=== PATIENT | female | born 1940 | race Caucasian/White ===

== ENCOUNTER 2017-08-20 07:52 | Outpatient (CLI) | payer OTHER ==
[~2017-08-20 07:52] MED LIST: MACROBID 100 M100 MG PO; ULTRACET PO
== END 2017-08-20 08:00 | disposition home or self-care (01) ==
LOC: LAB 07:52
DX: D51.0 Vitamin B12 deficiency anemia due to intrinsic factor deficiency (principal); D51.1 Vitamin B12 deficiency anemia due to selective vitamin B12 malabsorption with proteinuria; D53.0 Protein deficiency anemia; I10 Essential (primary) hypertension; E08.65 Diabetes mellitus due to underlying condition with hyperglycemia; E03.8 Other specified hypothyroidism; E04.2 Nontoxic multinodular goiter; D50.8 Other iron deficiency anemias; D51.8 Other vitamin B12 deficiency anemias; E55.9 Vitamin D deficiency, unspecified; K90.89 Other intestinal malabsorption; D68.8 Other specified coagulation defects

== ENCOUNTER 2018-02-19 08:44 | Outpatient (CLI) | payer OTHER | END 2018-02-19 08:49 | disposition home or self-care (01) | LOC: LAB 08:44 | DX: D51.0 Vitamin B12 deficiency anemia due to intrinsic factor deficiency (principal); D51.1 Vitamin B12 deficiency anemia due to selective vitamin B12 malabsorption with proteinuria; D53.0 Protein deficiency anemia; D68.8 Other specified coagulation defects; I10 Essential (primary) hypertension; E08.65 Diabetes mellitus due to underlying condition with hyperglycemia; E03.8 Other specified hypothyroidism; E04.2 Nontoxic multinodular goiter; D50.8 Other iron deficiency anemias; E55.9 Vitamin D deficiency, unspecified; K90.89 Other intestinal malabsorption; R97.0 Elevated carcinoembryonic antigen [CEA]; R97.8 Other abnormal tumor markers ==

== ENCOUNTER 2018-08-27 08:09 | Outpatient (CLI) | payer OTHER | END 2018-08-27 08:18 | disposition home or self-care (01) | LOC: LAB 08:09 | DX: D51.0 Vitamin B12 deficiency anemia due to intrinsic factor deficiency (principal); D51.1 Vitamin B12 deficiency anemia due to selective vitamin B12 malabsorption with proteinuria; D53.0 Protein deficiency anemia; D68.8 Other specified coagulation defects; I10 Essential (primary) hypertension; E08.65 Diabetes mellitus due to underlying condition with hyperglycemia; E03.8 Other specified hypothyroidism; E04.2 Nontoxic multinodular goiter; D50.8 Other iron deficiency anemias; D51.8 Other vitamin B12 deficiency anemias; E55.9 Vitamin D deficiency, unspecified; K90.89 Other intestinal malabsorption ==

== ENCOUNTER 2019-03-01 07:28 | Outpatient (CLI) | payer OTHER | END 2019-03-01 07:37 | disposition home or self-care (01) | LOC: LAB 07:28 | DX: D51.0 Vitamin B12 deficiency anemia due to intrinsic factor deficiency (principal); D51.1 Vitamin B12 deficiency anemia due to selective vitamin B12 malabsorption with proteinuria; D53.0 Protein deficiency anemia; D68.8 Other specified coagulation defects; I10 Essential (primary) hypertension; E08.65 Diabetes mellitus due to underlying condition with hyperglycemia; E03.8 Other specified hypothyroidism; D50.8 Other iron deficiency anemias; E04.2 Nontoxic multinodular goiter; D51.8 Other vitamin B12 deficiency anemias; R97.0 Elevated carcinoembryonic antigen [CEA]; K90.89 Other intestinal malabsorption ==

== ENCOUNTER 2019-11-05 07:08 | Outpatient (CLI) | payer OTHER | END 2019-11-05 07:15 | disposition home or self-care (01) | LOC: LAB 07:08 | PROVIDERS: ATTEND Internal Medicine Hematology & Oncology | DX: D50.8 Other iron deficiency anemias (principal); I10 Essential (primary) hypertension; D51.0 Vitamin B12 deficiency anemia due to intrinsic factor deficiency; D51.1 Vitamin B12 deficiency anemia due to selective vitamin B12 malabsorption with proteinuria; D53.0 Protein deficiency anemia; D68.8 Other specified coagulation defects; E08.65 Diabetes mellitus due to underlying condition with hyperglycemia; E03.8 Other specified hypothyroidism; E04.2 Nontoxic multinodular goiter; D51.8 Other vitamin B12 deficiency anemias; E55.9 Vitamin D deficiency, unspecified; R97.0 Elevated carcinoembryonic antigen [CEA] ==

== ENCOUNTER 2020-01-05 07:02 | Outpatient (CLI) | payer OTHER | END 2020-01-05 07:09 | disposition home or self-care (01) | LOC: LAB 07:02 | PROVIDERS: ATTEND Internal Medicine Hematology & Oncology | DX: D50.8 Other iron deficiency anemias (principal); I10 Essential (primary) hypertension; R97.0 Elevated carcinoembryonic antigen [CEA]; R97.8 Other abnormal tumor markers; D51.0 Vitamin B12 deficiency anemia due to intrinsic factor deficiency; D51.1 Vitamin B12 deficiency anemia due to selective vitamin B12 malabsorption with proteinuria; D53.0 Protein deficiency anemia; D68.8 Other specified coagulation defects; E08.65 Diabetes mellitus due to underlying condition with hyperglycemia; E03.8 Other specified hypothyroidism; E04.2 Nontoxic multinodular goiter; R94.5 Abnormal results of liver function studies ==

== ENCOUNTER 2020-05-16 07:24 | Outpatient (CLI) | payer OTHER | END 2020-05-16 18:00 | disposition home or self-care (01) | LOC: LAB 07:24 | PROVIDERS: ATTEND Internal Medicine Hematology & Oncology | DX: D50.8 Other iron deficiency anemias (principal); I10 Essential (primary) hypertension; R79.89 Other specified abnormal findings of blood chemistry; R74.02 Elevation of levels of lactic acid dehydrogenase [LDH]; K76.89 Other specified diseases of liver; R97.0 Elevated carcinoembryonic antigen [CEA]; R97.8 Other abnormal tumor markers; D51.0 Vitamin B12 deficiency anemia due to intrinsic factor deficiency; D51.1 Vitamin B12 deficiency anemia due to selective vitamin B12 malabsorption with proteinuria; D53.0 Protein deficiency anemia; D68.8 Other specified coagulation defects; E08.65 Diabetes mellitus due to underlying condition with hyperglycemia; E03.8 Other specified hypothyroidism; E04.2 Nontoxic multinodular goiter; R94.5 Abnormal results of liver function studies ==

== ENCOUNTER 2020-11-08 07:19 | Outpatient (CLI) | payer OTHER | END 2020-11-08 07:21 | disposition home or self-care (01) | LOC: LAB 07:19 | PROVIDERS: ATTEND Internal Medicine Hematology & Oncology | DX: D50.8 Other iron deficiency anemias (principal); R79.89 Other specified abnormal findings of blood chemistry; I10 Essential (primary) hypertension; R74.02 Elevation of levels of lactic acid dehydrogenase [LDH]; K76.89 Other specified diseases of liver; R97.0 Elevated carcinoembryonic antigen [CEA]; R97.8 Other abnormal tumor markers; D51.0 Vitamin B12 deficiency anemia due to intrinsic factor deficiency; D51.1 Vitamin B12 deficiency anemia due to selective vitamin B12 malabsorption with proteinuria; D53.0 Protein deficiency anemia; E03.8 Other specified hypothyroidism; E04.2 Nontoxic multinodular goiter; R94.5 Abnormal results of liver function studies; D68.8 Other specified coagulation defects ==

== ENCOUNTER 2021-05-09 06:37 | Outpatient (CLI) | payer OTHER | END 2021-05-09 06:43 | disposition home or self-care (01) | LOC: LAB 06:37 | PROVIDERS: ATTEND Internal Medicine Hematology & Oncology | DX: D51.0 Vitamin B12 deficiency anemia due to intrinsic factor deficiency (principal); D51.1 Vitamin B12 deficiency anemia due to selective vitamin B12 malabsorption with proteinuria; D53.0 Protein deficiency anemia; I10 Essential (primary) hypertension; E08.65 Diabetes mellitus due to underlying condition with hyperglycemia; E03.8 Other specified hypothyroidism; E04.2 Nontoxic multinodular goiter; R94.5 Abnormal results of liver function studies; D68.8 Other specified coagulation defects ==

== ENCOUNTER 2021-11-09 07:38 | Outpatient (CLI) | payer OTHER | END 2021-11-09 07:39 | disposition home or self-care (01) | LOC: LAB 07:38 | PROVIDERS: ATTEND Internal Medicine Hematology & Oncology | DX: D50.8 Other iron deficiency anemias (principal); R79.9 Abnormal finding of blood chemistry, unspecified; I10 Essential (primary) hypertension; R74.02 Elevation of levels of lactic acid dehydrogenase [LDH]; K76.89 Other specified diseases of liver; D51.8 Other vitamin B12 deficiency anemias; E55.9 Vitamin D deficiency, unspecified; D47.2 Monoclonal gammopathy; C90.00 Multiple myeloma not having achieved remission; R97.8 Other abnormal tumor markers; R97.0 Elevated carcinoembryonic antigen [CEA]; D51.0 Vitamin B12 deficiency anemia due to intrinsic factor deficiency; D51.1 Vitamin B12 deficiency anemia due to selective vitamin B12 malabsorption with proteinuria; D53.0 Protein deficiency anemia; E08.65 Diabetes mellitus due to underlying condition with hyperglycemia; E03.8 Other specified hypothyroidism; E04.2 Nontoxic multinodular goiter; R94.5 Abnormal results of liver function studies; D68.8 Other specified coagulation defects ==

== ENCOUNTER 2022-05-13 07:21 | Outpatient (CLI) | payer OTHER | END 2022-05-13 07:26 | disposition home or self-care (01) | LOC: LAB 07:21 | PROVIDERS: ATTEND Internal Medicine Hematology & Oncology | DX: D50.8 Other iron deficiency anemias (principal); R79.9 Abnormal finding of blood chemistry, unspecified; I10 Essential (primary) hypertension; R74.02 Elevation of levels of lactic acid dehydrogenase [LDH]; K76.89 Other specified diseases of liver; D51.8 Other vitamin B12 deficiency anemias; R97.0 Elevated carcinoembryonic antigen [CEA]; R97.8 Other abnormal tumor markers; D51.0 Vitamin B12 deficiency anemia due to intrinsic factor deficiency; D51.1 Vitamin B12 deficiency anemia due to selective vitamin B12 malabsorption with proteinuria; D53.0 Protein deficiency anemia; E08.65 Diabetes mellitus due to underlying condition with hyperglycemia; E03.8 Other specified hypothyroidism; E04.2 Nontoxic multinodular goiter; R94.5 Abnormal results of liver function studies; D68.8 Other specified coagulation defects ==

== ENCOUNTER 2022-09-13 07:24 | Outpatient (CLI) | payer OTHER | END 2022-09-13 07:44 | disposition home or self-care (01) | LOC: LAB 07:24 | PROVIDERS: ATTEND Internal Medicine Hematology & Oncology | DX: D50.8 Other iron deficiency anemias (principal); R79.9 Abnormal finding of blood chemistry, unspecified; I10 Essential (primary) hypertension; R74.02 Elevation of levels of lactic acid dehydrogenase [LDH]; K76.89 Other specified diseases of liver; C50.919 Malignant neoplasm of unspecified site of unspecified female breast; R97.8 Other abnormal tumor markers; C25.9 Malignant neoplasm of pancreas, unspecified; C56.9 Malignant neoplasm of unspecified ovary; R97.1 Elevated cancer antigen 125 [CA 125]; R97.0 Elevated carcinoembryonic antigen [CEA]; D51.0 Vitamin B12 deficiency anemia due to intrinsic factor deficiency; D51.1 Vitamin B12 deficiency anemia due to selective vitamin B12 malabsorption with proteinuria; E08.65 Diabetes mellitus due to underlying condition with hyperglycemia; E03.8 Other specified hypothyroidism; E04.2 Nontoxic multinodular goiter; R94.5 Abnormal results of liver function studies; D68.8 Other specified coagulation defects; I70.213 Atherosclerosis of native arteries of extremities with intermittent claudication, bilateral legs; G47.62 Sleep related leg cramps ==

== ENCOUNTER 2023-07-14 07:16 | Outpatient (CLI) | payer OTHER ==
[2023-07-14 08:33] LABS: HEMATOCRIT 38.4 % (36.0-45.00); MEAN CELL VOLUME 94.2 fL (80.00-100.00); MEAN CORPUSCULAR HEMOGLOBIN 31.8 pg (27.00-32.0); MEAN CORPUSCULAR HGB CONC 33.8 g/dl (32.0-36.0); PLATELET COUNT 329 K/uL (150-450); RED BLOOD COUNT 4.07 M/uL (4.00-6.00); RED CELL DISTRIBUTION WIDTH 14.4 % (11.5-14.5)
[2023-07-14 09:25] LABS: ALBUMIN 3.5 gm/dL (3.4-5.0); BILIRUBIN TOTAL 0.89 mg/dL (0.3-1.2); CALCIUM 9.6 mg/dL (8.5-10.1); CREATININE SERUM 1.14 mg/dL (0.55-1.02); GFR 45.52; POTASSIUM 4.8 mEq/L (3.5-5.1); TOTAL PROTEIN 8.5 gm/dL (6.4-8.2)
[2023-07-14 10:12] LABS: MANUAL PLATELET COUNT 334
[2023-07-14 13:03] LABS: FOLIC ACID 11.14 ng/ml (4.78-20)
== END 2023-07-14 07:19 | disposition home or self-care (01) ==
LOC: LAB 07:16
PROVIDERS: ATTEND Internal Medicine Hematology & Oncology
DX: D51.0 Vitamin B12 deficiency anemia due to intrinsic factor deficiency (principal); D51.1 Vitamin B12 deficiency anemia due to selective vitamin B12 malabsorption with proteinuria; D53.0 Protein deficiency anemia; I10 Essential (primary) hypertension; E08.65 Diabetes mellitus due to underlying condition with hyperglycemia; E03.8 Other specified hypothyroidism; E04.2 Nontoxic multinodular goiter; R94.5 Abnormal results of liver function studies; D68.8 Other specified coagulation defects; I73.9 Peripheral vascular disease, unspecified; G47.62 Sleep related leg cramps; D50.8 Other iron deficiency anemias; R79.9 Abnormal finding of blood chemistry, unspecified; R74.02 Elevation of levels of lactic acid dehydrogenase [LDH]; K76.89 Other specified diseases of liver

== ENCOUNTER 2024-01-20 07:05 | Outpatient (CLI) | payer OTHER ==
[2024-01-20 08:04] LABS: HEMATOCRIT 35.3 % (36.0-45.00); HEMOGLOBIN 12.4 g/dL (12.0-15.00); MEAN CELL VOLUME 94.1 fL (80.00-100.00); MEAN CORPUSCULAR HGB CONC 35.1 g/dl (32.0-36.0); PLATELET COUNT 327 K/uL (150-450); RED BLOOD COUNT 3.75 M/uL (4.00-6.00); RED CELL DISTRIBUTION WIDTH 14.3 % (11.5-14.5)
[2024-01-20 08:36] LABS: ALBUMIN 3.4 gm/dL (3.4-5.0); BILIRUBIN TOTAL 0.68 mg/dL (0.3-1.2); CALCIUM 9.2 mg/dL (8.5-10.1); CREATININE SERUM 1.07 mg/dL (0.55-1.02); GFR 48.97; GLOBULINA 4.8 G/DL (2.4-3.5); POTASSIUM 4.14 mEq/L (3.5-5.1); TOTAL PROTEIN 8.2 gm/dL (6.4-8.2)
[2024-01-20 14:07] LABS: PLATELET ESTIMATE INCREASED (NORMAL)
[2024-01-20 14:13] LABS: MANUAL PLATELET COUNT 468
[2024-01-20 14:53] LABS: FOLIC ACID 10.46 ng/ml (4.78-20)
[2024-01-22 05:06] LABS: kappa lambda r 1.29 (0.26-1.65); kappa light 51.2 mg/L (3.3-19.4); lambda light 39.7 mg/L (5.7-26.3)
[2024-01-22 17:06] LABS: IMM A 290 mg/dL (64-422); IMM G 2122 mg/dL (586-1602); IMM M 195 mg/dL (26-217)
[2024-01-23 07:09] LABS: a:g ratio 0.7 (0.7-1.7); alpha 1 g 0.3 g/dL (0.0-0.4); globulin t 4.2 g/dL (2.2-3.9); m spike Not Observed g/dL (Not Observed); prot total 7.1 g/dL (6.0-8.5)
[2024-01-26 16:29] LABS: BETA-2-MICROGLOBULINA 2.8 mg/L (0.6-2.4); albu 47.2 % (.); alp 0 % (.); alph 2 0 % (.); beta 0 % (.); gam 0 % (.); prot 15.4 mg/dL (Not Estab.)
== END 2024-01-20 07:06 | disposition home or self-care (01) ==
LOC: LAB 07:05
PROVIDERS: ATTEND Internal Medicine Hematology & Oncology
DX: D51.0 Vitamin B12 deficiency anemia due to intrinsic factor deficiency (principal); D51.1 Vitamin B12 deficiency anemia due to selective vitamin B12 malabsorption with proteinuria; D53.0 Protein deficiency anemia; I10 Essential (primary) hypertension; E08.65 Diabetes mellitus due to underlying condition with hyperglycemia; E03.8 Other specified hypothyroidism; E04.2 Nontoxic multinodular goiter; R94.5 Abnormal results of liver function studies; D68.8 Other specified coagulation defects; I73.9 Peripheral vascular disease, unspecified; G47.62 Sleep related leg cramps; R79.9 Abnormal finding of blood chemistry, unspecified; R74.02 Elevation of levels of lactic acid dehydrogenase [LDH]; K76.89 Other specified diseases of liver; C90.00 Multiple myeloma not having achieved remission; D47.2 Monoclonal gammopathy

== ENCOUNTER 2024-02-23 06:53 | Outpatient (CLI) | payer OTHER ==
[2024-02-23 07:30] LABS: HEMATOCRIT 37.1 % (36.0-45.00); HEMOGLOBIN 12.7 g/dL (12.0-15.00); MEAN CELL VOLUME 94.2 fL (80.00-100.00); MEAN CORPUSCULAR HEMOGLOBIN 32.3 pg (27.00-32.0); MEAN CORPUSCULAR HGB CONC 34.3 g/dl (32.0-36.0); PLATELET COUNT 324 K/uL (150-450); RED BLOOD COUNT 3.93 M/uL (4.00-6.00); RED CELL DISTRIBUTION WIDTH 14.2 % (11.5-14.5)
[2024-02-23 07:46] LABS: URINE APPEARANCE Clear; URINE BILIRRUBIN Negative (NEGATIVE); URINE BLOOD Negative; URINE COLOR Yellow; URINE GLUCOSE Negative (NEGATIVE); URINE KETONE Negative (NEGATIVE); URINE LEUKOCYTE Negative; URINE NITRATE Negative; URINE PROTEIN Negative (NEGATIVE); URINE UROBILINOGEN 0.2 E.U./dl
[2024-02-23 07:57] LABS: URINE BACTERIA 1515.6 uL (0.0-1933); URINE EPITHELIAL CELLS 58.1 uL (0.0-38.8); URINE RBC 3.2 uL (0.0-20.8); URINE WBC 58.9 uL (0.0-23.2)
[2024-02-23 08:03] LABS: INR 1.03; PARTIAL THROMBOPLASTIN TIME 26.5 SECONDS (22.0-34.0); PROTHROMBIN TIME 11.2 SECONDS (9.0-11.5)
[2024-02-23 08:15] LABS: ALBUMIN 3.3 gm/dL (3.4-5.0); BILIRUBIN TOTAL 0.78 mg/dL (0.3-1.2); CALCIUM 9.2 mg/dL (8.5-10.1); CREATININE SERUM 1.25 mg/dL (0.55-1.02); GFR 40.93; GLOBULINA 4.9 G/DL (2.4-3.5); POTASSIUM 4.63 mEq/L (3.5-5.1); TOTAL PROTEIN 8.2 gm/dL (6.4-8.2)
== END 2024-02-23 07:00 | disposition home or self-care (01) ==
LOC: LAB 06:53
PROVIDERS: ATTEND Obstetrics & Gynecology Gynecology
DX: R07.89 Other chest pain (principal); Z01.812 Encounter for preprocedural laboratory examination; Z01.818 Encounter for other preprocedural examination; D50.8 Other iron deficiency anemias; R73.03 Prediabetes; D68.8 Other specified coagulation defects; N39.0 Urinary tract infection, site not specified

== ENCOUNTER 2024-03-16 05:17 | Day surgery (SDC) | payer OTHER ==
[~2024-03-16 05:17] MED LIST changes: +GLUMETZA1000 MG; +SIMVASTATIN80 MG
[2024-03-16] MEDS ORDERED: VANCOMYCIN HCL 1,000 MG VIAL IR ONE (08:30)
[2024-03-16] MEDS ORDERED: LIDOCAINE HCL 1%/EPINEPHRINE 20ML VIAL IJ ONE (08:30)
[2024-03-16] MEDS ORDERED: CHLORHEXIDINE GLUCONATE 120 ML BOTTLE TOP ONE (08:30)
[2024-03-16] MEDS ORDERED: CEFAZOLIN SODIUM 1,000 MG VIAL IV ONE (08:30)
[2024-03-16] MEDS ORDERED: TRAM1TAB98 PO (09:47)
[2024-03-16] MEDS ORDERED: MACROBID 100 M100 MG PO (09:47)
== END 2024-03-16 13:05 | disposition home or self-care (01) ==
LOC: CIR.AMB 05:17
PROVIDERS: ATTEND Obstetrics & Gynecology Gynecology
DX: N81.3 Complete uterovaginal prolapse (principal)

== ENCOUNTER 2024-07-20 07:47 | Outpatient (CLI) | payer OTHER ==
[~2024-07-20 07:47] MED LIST changes: +TRAM1TAB98 PO
[2024-07-20 08:57] LABS: HEMATOCRIT 36.7 % (36.0-45.00); HEMOGLOBIN 12.5 g/dL (12.0-15.00); MEAN CELL VOLUME 93.9 fL (80.00-100.00); MEAN CORPUSCULAR HEMOGLOBIN 32.1 pg (27.00-32.0); MEAN CORPUSCULAR HGB CONC 34.1 g/dl (32.0-36.0); PLATELET COUNT 302 K/uL (150-450); RED CELL DISTRIBUTION WIDTH 14.8 % (11.5-14.5)
[2024-07-20 10:48] LABS: ALBUMIN 3.6 gm/dL (3.4-5.0); BILIRUBIN TOTAL 0.81 mg/dL (0.3-1.2); CREATININE SERUM 1.15 mg/dL (0.55-1.02); GFR 44.95; GLOBULINA 4.8 G/DL (2.4-3.5); POTASSIUM 4.69 mEq/L (3.5-5.1); TOTAL PROTEIN 8.4 gm/dL (6.4-8.2)
[2024-07-20 10:50] LABS: FOLIC ACID 12.48 ng/ml (4.78-20)
[2024-07-20 13:51] LABS: MANUAL PLATELET COUNT 376
[2024-07-20 13:52] LABS: PLATELET ESTIMATE NORMAL (NORMAL)
[2024-07-21 09:10] LABS: CA 125 14.9 U/mL (0.0-38.1)
[2024-07-22 17:06] LABS: INTRINSIC FACTOR BLOCKING AB 1.1 AU/mL (0.0-1.1)
== END 2024-07-20 07:52 | disposition home or self-care (01) ==
LOC: LAB 07:47
PROVIDERS: ATTEND Internal Medicine Hematology & Oncology
DX: D51.0 Vitamin B12 deficiency anemia due to intrinsic factor deficiency (principal); D51.1 Vitamin B12 deficiency anemia due to selective vitamin B12 malabsorption with proteinuria; D53.0 Protein deficiency anemia; I10 Essential (primary) hypertension; E08.65 Diabetes mellitus due to underlying condition with hyperglycemia; E03.8 Other specified hypothyroidism; E04.2 Nontoxic multinodular goiter; R94.5 Abnormal results of liver function studies; D68.8 Other specified coagulation defects; I73.9 Peripheral vascular disease, unspecified; G47.62 Sleep related leg cramps; D50.8 Other iron deficiency anemias; R79.9 Abnormal finding of blood chemistry, unspecified; R74.02 Elevation of levels of lactic acid dehydrogenase [LDH]; K76.89 Other specified diseases of liver; R97.0 Elevated carcinoembryonic antigen [CEA]; R97.8 Other abnormal tumor markers

== ENCOUNTER 2025-01-11 07:16 | Outpatient (CLI) | payer OTHER ==
[2025-01-11 08:38] LABS: BASO % 0.8 % (0.1-1.2); EOS # 0.15 (0.04-0.54); EOS % 3.0 % (0.7-7.0); LYMPH # 1.51 (1.18-3.74); LYMPH % 29.7 % (19.3-53.1); MEAN PLATELET VOLUME 9.50 fl (9.4-12.4); MONO # 0.61 (0.24-0.82); MONO % 12.0 % (4.7-12.5); NEUT # 2.76 (1.56-6.13); NEUT % 54.3 % (34.0-71.1); RED CELL DISTRIBUTION WIDTH 14.0 % (11.6-14.4)
[2025-01-11 09:10] LABS: ALT/SGPT 25.0 U/L (12-78); AST/SGOT 32.0 U/L (15-37); BILIRUBIN TOTAL 0.87 mg/dL (0.3-1.2); BUN CREA RATIO 21.0 (7.0-25.0); CREATININE SERUM 1.17 mg/dL (0.55-1.02); FE 66.0 ug/dl (50-170); GFR 44.07; GLOBULINA 4.6 G/DL (2.4-3.5); GLUCOSE FASTING 75.0 mg/dL (65-100); LDH 201.0 U/L (84-246); OSMOLALITY SERUM 286.0 MOSM/KG (275-295)
[2025-01-11 11:09] LABS: FOLIC ACID 12.24 ng/ml (4.78-20)
== END 2025-01-11 07:21 | disposition home or self-care (01) ==
LOC: LAB 07:16
PROVIDERS: ATTEND Internal Medicine Hematology & Oncology
DX: D50.8 Other iron deficiency anemias (principal); R79.9 Abnormal finding of blood chemistry, unspecified; I10 Essential (primary) hypertension; R74.02 Elevation of levels of lactic acid dehydrogenase [LDH]; K76.89 Other specified diseases of liver; C56.9 Malignant neoplasm of unspecified ovary; R97.8 Other abnormal tumor markers; R97.1 Elevated cancer antigen 125 [CA 125]; R97.0 Elevated carcinoembryonic antigen [CEA]

== ENCOUNTER 2025-02-25 08:12 | Outpatient (CLI) | payer OTHER | END 2025-02-25 08:14 | disposition home or self-care (01) | LOC: TOM 08:12 | PROVIDERS: ATTEND Internal Medicine Hematology & Oncology | DX: D51.0 Vitamin B12 deficiency anemia due to intrinsic factor deficiency (principal); D51.1 Vitamin B12 deficiency anemia due to selective vitamin B12 malabsorption with proteinuria; D53.0 Protein deficiency anemia; I10 Essential (primary) hypertension; E08.65 Diabetes mellitus due to underlying condition with hyperglycemia; E03.8 Other specified hypothyroidism; E04.2 Nontoxic multinodular goiter; R94.5 Abnormal results of liver function studies; D68.8 Other specified coagulation defects; I73.9 Peripheral vascular disease, unspecified; G47.62 Sleep related leg cramps | CPT/HCPCS: 71250; 74177; Q9965 ==